=== PATIENT | male | born 1980 | race Caucasian/White ===

== ENCOUNTER 2021-01-08 06:46 | Emergency (ER) | payer OTHER ==
[2021-01-08 07:46] LABS: BASOPHIL 0.8 % (0-2); EOSINOPHIL 2.6 % (0-5); HCT 46.1 % (42.0-52.0); LYMPHOCYTE 14.7 % (15-48); MCH 30.2 pg (25.0-31.0); MCHC 32.5 g/dL (32.0-36.0); MCV 92.8 fL (78.0-100.0); MONOCYTE 5.2 % (0-12); MPV 11.2 fL (6.0-9.5); NEUTROPHIL 75.7 % (41-80); NRBC 0; PLT 228 K/uL (150-400); RBC 4.97 M/uL (4.70-6.00); RDW 13.2 % (11.5-14.0); WBC 10.6 K/uL (4.0-10.5)
[2021-01-08 08:08] LABS: ALBUMIN 3.6 g/dL (3.4-5.0); ALKALINE PHOSHATASE 84 U/L (46-116); ALT 74 U/L (16-63); AST 57 U/L (15-37); BILIRUBIN - TOTAL 0.1 mg/dL (0.2-1.0); BUN 21 mg/dL (7-18); BUN/CREAT RATIO (CALC) 17.1 RATIO; CHLORIDE 101 mmol/L (98-107); CO2 (BICARBONATE) 30 mmol/L (21-32); CREATININE 1.23 mg/dL (0.67-1.17); GLOBULIN (CALCULATION) 3.7 g/dL; GLUCOSE 227 mg/dL (74-106); POTASSIUM 3.6 mmol/L (3.5-5.1); TOTAL PROTEIN 7.3 g/dL (6.4-8.2)
[2021-01-08 08:09] LABS: ACETAMINOPHEN (TYLENOL) < 2.0 ug/mL (10.0-30.0)
[2021-01-08 10:38] LABS: BILIRUBIN NEGATIVE (NEGATIVE); BLOOD 2+ Ery/uL (NEGATIVE); COLOR YELLOW (YELLOW); GLUCOSE (U) NORMAL (NORMAL); LEUKOCYTES TRACE Leu/uL (NEGATIVE); NITRITE NEGATIVE (NEGATIVE); PROTEIN 1+ mg/dL (NEGATIVE); SPECIFIC GRAVITY >=1.030 (1.001-1.030); UROBILINOGEN 0.2 mg/dL (0.2-1.0)
[2021-01-08 10:39] LABS: CLARITY SLIGHTLY HAZY (CLEAR)
[2021-01-08 10:43] LABS: URINARY WBC 20-50
[2021-01-08 10:44] LABS: BACTERIA TRACE; GRANULAR CASTS TRACE; SPERM PRESENT; SQUAMOUS EPITHELIAL CELLS RARE
[2021-01-08 10:45] LABS: ECSTASY (MDMA) POSITIVE (NEGATIVE); MARIJUANA (THC) NEGATIVE (NEGATIVE); METHADONE NEGATIVE (NEGATIVE); OPIATES POSITIVE (NEGATIVE)
[2021-01-08 10:46] LABS: AMPHETAMINES POSITIVE (NEGATIVE); BARBITURATES NEGATIVE (NEGATIVE); OXYCODONE NEGATIVE (NEGATIVE)
== END 2021-01-08 11:59 | disposition home or self-care (01) ==
LOC: FER 06:46
PROVIDERS: Emergency Medicine
DX: T40.1X1A Poisoning by heroin, accidental (unintentional), initial encounter (principal); R41.82 Altered mental status, unspecified; F19.10 Other psychoactive substance abuse, uncomplicated; F17.210 Nicotine dependence, cigarettes, uncomplicated
CPT/HCPCS: 36415; 71045; 80053; 80305; 81001; 84484; 85025; 93005; G0480; J7030